=== PATIENT | female | born 2000 | race Caucasian/White ===

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

== ENCOUNTER → 2022-05-26 | Outpatient (REF) | payer OTHER, BC | LOC: M LAB REF 11:57 | PROVIDERS: ATTEND Physician Assistant | DX: J02.9 Acute pharyngitis, unspecified (principal) ==

== ENCOUNTER 2024-10-14 11:26 | Emergency (ER) | payer BC, OTHER ==
[~2024-10-14] VITALS: Ht 170.2 cm; Wt 59.7 kg
[2024-10-14 12:35] LABS: BASO # 0.1 10^3/uL (0.0-0.2); BASO % 0.7 % (0.0-1.0); EOS # 0.2 10^3/uL (0.0-0.5); EOS % 3.3 % (0.0-3.0); LYMPH # 1.9 10^3/uL (1.5-5.0); LYMPH % 27.8 % (24.0-44.0); MONO # 0.5 10^3/uL (0.0-0.8); MONO % 7.6 % (2.0-8.0); NEUTROPHILS # 4.0 10^3/uL (1.5-8.5); NEUTROPHILS % 60.3 % (36.0-66.0); PLATELET COUNT, AUTOMATED 264 10^3/uL (150-450)
[2024-10-14 13:02] LABS: ALT/SGPT 16 U/L (7.0-40); AST/SGOT 24 U/L (<34); CALCIUM LEVEL 9.5 MG/DL (8.5-10.1); CARBON DIOXIDE LEVEL 26 MMOL/L (20-31); CHLORIDE LEVEL 101 MMOL/L (98-107); CREATININE FOR GFR 0.66 MG/DL (0.55-1.30); GLOMERULAR FILTRATION RATE > 90.0 (>60); HCG, SERUM QUANTITATIVE < 2.6 MIU/ML (<4.2); POTASSIUM SERUM 4.1 MMOL/L (3.5-5.1); SODIUM LEVEL 140 MMOL/L (136-145)
[2024-10-14 13:04] LABS: FREE T4 1.36 NG/DL (0.89-1.76)
[2024-10-14] MEDS ORDERED: DULC10SU2 PR (14:01)
[2024-10-14] MEDS ORDERED: COLA100C5 PO (14:01)
[2024-10-14] MEDS: MAGNESIUM CITRATE 300 ML BTL PO ONE (14:12)
[2024-10-14 14:20] VITALS: BP 98/53; TEMP 97.9; O2SAT 100
== END 2024-10-14 14:23 | disposition home or self-care (01) ==
LOC: M ED 11:26
DX: K59.00 Constipation, unspecified (principal); Z79.899 Other long term (current) drug therapy

== ENCOUNTER → 2024-11-08 | Outpatient (REF) | payer BC ==
[~2024-11-08] MED LIST: COLA100C5 PO; DULC10SU2 PR
== END ==
LOC: M LAB REF 12:13
PROVIDERS: ATTEND Student in an Organized Health Care Education/Training Program
DX: J02.9 Acute pharyngitis, unspecified (principal)